=== PATIENT | male | born 1975 | race Two or more races ===

== ENCOUNTER 2020-04-10 00:04 | Emergency (ER) | payer SELFPAY ==
[2020-04-10 00:19] VITALS: BP 153/94
--- NOTE | 2020-04-10 01:36 | ER Document Report ---
ED General - General Chief Complaint: Foreign Body in Ear Stated Complaint: EAR INJURY CUTIP Notes: Patient is a 44-year-old male with no reported significant past medical history presents the emergency department there with a chief complaint of suspected foreign body in the left ear. Patient reports he was using a Q-tip to swab the ear when the tip seem to flake off with a cotton swab applicator being left in the ear. Patient states that he could see it and try to grab it with his fingers but could not get it. States his visualized at and then she states he put his hand to the ear bent his ear to the side and tried to suction cup with his hand to the ear. states she looked and could not see it again they assumed it was shoved deeper in the ear so they came for evaluation. They deny any other pain, complaints or concerns at this time. - Related Data Home Medications: levothyroxine Past Medical History - Social History Smoking Status: Never Smoker Family History: Reviewed & Not Pertinent Review of Systems - Review of Systems Constitutional: denies: Fever EENT: denies: Ear discharge Cardiovascular: denies: Syncope Respiratory: denies: Sputum Gastrointestinal: denies: Constipation, Blood in vomit Genitourinary: denies: Flank pain Male Genitourinary: denies: Testicular pain Musculoskeletal: denies: Muscle pain Skin: denies: Lesions Hematologic/Lymphatic: denies: Easy bleeding Neurological/Psychological: denies: Gait changes Physical Exam - Vital signs Vitals: Temp Pulse Resp BP Pulse Ox 98.2 F 82 16 153/94 H 97 04/10/20 00:16 04/10/20 00:16 04/10/20 00:16 04/10/20 00:16 04/10/20 00:16 - General General appearance: Appears well, Alert In distress: None - HEENT Head: Normocephalic, Atraumatic Eyes: Normal Conjunctiva: Normal Ears: Normal External canal: Normal. No: Foreign body Tympanic membrane: Normal - Respiratory Respiratory status: No respiratory distress Breath sounds: Normal - Cardiovascular Rhythm: Regular Heart sounds: Normal auscultation - Neurological Neuro grossly intact: Yes Cognition: Normal Orientation: AAOx4 - Psychological Associated symptoms: Normal affect, Normal mood - Skin Skin Temperature: Warm Skin Moisture: Dry Skin Color: Normal Course - Re-evaluation Re-evalutation: 04/10/20 01:35 Examination revealing no foreign body or remnants in the ear canal. Patient likely incidentally removed the remaining cotton swab tip with the suction without visualizing its removal. No evidence of infection or injury. Discussed with him the importance of outpatient follow-up and advised to return here or any ER immediately with any new, persistent or worsening symptoms. He verbalized understood and agreed. - Vital Signs Vital signs: Temp Pulse Resp BP Pulse Ox 98.2 F 82 16 153/94 H 97 04/10/20 00:16 04/10/20 00:16 04/10/20 00:16 04/10/20 00:16 04/10/20 00:16 Discharge - Discharge Clinical Impression: Normal ear exam Condition: Stable Disposition: HOME, SELF-CARE Instructions: Foreign Object in the Ear ([facility]) Additional Instructions: Follow-up with your regular doctor in 2 to 3 days for reevaluation. Return here or any ER immediately with any new, persistent or worsening symptoms. Referrals: [facility] [NO LOCAL MD] - Follow up as needed
== END 2020-04-10 01:40 | disposition home or self-care (01) ==
LOC: ER 00:04
DX: Z71.1 Person with feared health complaint in whom no diagnosis is made (principal); T16.2XXA Foreign body in left ear, initial encounter
CPT/HCPCS: 99282